=== PATIENT | female | born 1970 | race Caucasian/White ===

== ENCOUNTER 2018-06-06 22:11 | Emergency (ER) | payer SELFPAY ==
[~2018-06-06] VITALS: Ht 170.2 cm; Wt 136.1 kg
--- OUTSIDE RECORDS SUMMARY | 2018-06-06 22:13 | XMS REPORT | Clinical Summary ---
Author Author [facility] Organization [facility] Address Unknown Phone Unavailable Care Team Providers Care Enroute Controller Name Role Phone Sharpless PCP Allergies No Known Allergies Medications End Date Status Medication Sig Dispensed Refills Start Date Active diphenhydramine-acetamino Take 1 tablet 0 phen (TYLENOL PM) 25-500 by mouth mg Tab every night as needed. 08/28/2017 lisinopril Take 1 tablet 60 tablet 3 (PRINIVIL,ZESTRIL) 20 MG (20 mg total) 7 tablet by mouth 2 (two) times daily. 08/28/2017 metoprolol (LOPRESSOR) 25 Take 1 tablet 60 tablet 3 MG tablet (25 mg total) 7 by mouth 2 (two) times daily. Active Problems Problem Noted Date Hypertensive urgency 08/26/2016 Family History Medical History Relation Name Comments Arthritis Father Seizures Mother Relation Name Status Comments Father Alive Mother Social History Date Tobacco Use Types Packs/Day Years Used Never Smoker Alcohol Use Drinks/Week oz/Week Comments No Sex Assigned at Date Recorded Not on file Industry Job Start Date Occupation Not on file Not on file Not on file Travel End Travel History Travel Start No recent travel history available. Last Filed Vital Signs Not on file Plan of Treatment Not on file Results Not on fileafter 06/05/2017 Advance Directives For more information, please contact: [facility] [id number] [place] [address] Date Inactivated Comments Code Status Date Activated 08/28/2016 4:50 PM Full Code 08/26/2016 6:16 PM This code status was determined by: Patient
--- OUTSIDE RECORDS SUMMARY | 2018-06-06 22:13 | XMS REPORT | Clinical Summary ---
Author Author Mike [facility]ast[facility] Organization [facility] Address Unknown Phone Unavailable Care Team Providers Care Classified Ad Taker Name Role Phone Asked, No Pcp PCP Unavailable Allergies No Known Allergies Current Medications Prescription Sig. Disp. Refills Start End Date Status Date lisinopril Take 1 tablet (10 mg 30 tablet 0 03/22/20 Active (PRINIVIL,ZESTRIL) 10 mg total) by mouth daily for 18 tablet 30 days. carvedilol (COREG) 6.25 Take 1 tablet (6.25 mg 60 tablet 0 12/28/19 01/27/20 MG tablet total) by mouth 2 (two) 18 18 times a day for 30 days. traMADol (ULTRAM) 50 mg Take 1 tablet (50 mg 20 tablet 0 12/28/19 01/11/20 tablet total) by mouth every 6 18 18 (six) hours as needed for severe pain for up to 14 days. lisinopril Take 1 tablet (40 mg 30 tablet 0 12/29/19 01/28/20 Discontin (PRINIVIL,ZESTRIL) 40 mg total) by mouth daily. 18 18 ued tablet amLODIPine (NORVASC) 10 Take 1 tablet (10 mg 30 tablet 0 12/29/19 01/28/20 mg tablet total) by mouth daily for 18 18 30 days. clindamycin (CLEOCIN) 300 Take 1 capsule (300 mg 28 capsule 0 12/28/19 01/04/20 MG capsule total) by mouth 4 (four) 18 18 times a day for 7 days. metoprolol succinate XL Take 1 tablet (25 mg 30 tablet 0 03/22/03/22/20 Discontin (TOPROL-XL) 25 mg 24 hr total) by mouth daily for 18 18 ued tablet 30 days. metoprolol succinate XL Take 1 tablet (25 mg 30 tablet 0 03/22/20 04/21/20 (TOPROL-XL) 25 mg 24 hr total) by mouth daily for 18 18 tablet 30 days. Active Problems Problem Noted Date Secondary hypertension 12/27/2017 Resolved Problems Problem Noted Date Resolved Date Asymptomatic hypertensive urgency 12/27/2017 12/27/2017 Submental space infection 12/24/2017 12/27/2017 Encounters Date Type Specialty Care Team Description 03/22/2018 Emergency Emergency Medicine Dipak Spencer MD Leg edema, left (Primary Dx); Hypertension, unspecified type 12/24/2017 [facility] General Internal Medicine Baltazar Guerrier Submental space infection - Encounter MD Jasper (Primary Dx) 12/27/2017 Haroldo Yung MD Morris, David, after 06/05/2017 Social History Tobacco Use Types Packs/Day Years Used Date Never Smoker Smokeless Tobacco: Never Used Alcohol Use Drinks/Week oz/Week Comments No Sex Assigned at Date Recorded Not on file Last Filed Vital Signs Vital Sign Reading Time Taken Blood Pressure 195/84 03/22/2018 9:37 PM CDT Pulse 75 03/22/2018 9:37 PM CDT Temperature 37.1 C (98.7 F) 03/22/2018 4:57 PM CDT Respiratory Rate 18 03/22/2018 9:37 PM CDT Oxygen Saturation 98% 03/22/2018 9:22 PM CDT Inhaled Oxygen - - Concentration Weight 120 kg (265 lb) 12/26/2017 5:00 AM CDT Height 170.2 cm (5' 7") 03/22/2018 4:57 PM CDT Body Mass Index 41.5 12/26/2017 5:00 AM CDT Plan of Treatment Health Maintenance Due Date Last Done Comments CERVICAL CANCER SCREENING 1991 INFLUENZA VACCINE 03/01/2018 Procedures Procedure Name Priority Date/Time Associated Diagnosis Comments XR FOOT 2 VW LEFT STAT 03/22/2018 Results for this 9:13 PM CDT procedure are in the results section. US DUPLEX VENOUS LOWER STAT 03/22/2018 Results for this EXTREMITY LEFT 8:22 PM CDT procedure are in the results section. SMEAR REVIEW STAT 03/22/2018 Results for this 7:20 PM CDT procedure are in the results section. ZZESTIMATED GFR STAT 03/22/2018 Results for this 7:20 PM CDT procedure are in the results section. B NATRIURETIC PEPTIDE STAT 03/22/2018 Results for this 7:20 PM CDT procedure are in the results section. TROPONIN STAT 03/22/2018 Results for this 7:20 PM CDT procedure are in the results section. COMPREHENSIVE METABOLIC STAT 03/22/2018 Results for this PANEL 7:20 PM CDT procedure are in the results section. HC COMPLETE BLD COUNT STAT 03/22/2018 Results for this W/AUTO DIFF 7:20 PM CDT procedure are in the results section. ECG 12-LEAD STAT 03/22/2018 Results for this 5:03 PM CDT procedure are in the results section. ZZESTIMATED GFR Routine 12/27/2017 Results for this 6:26 AM CDT procedure are in the results section. HC COMPLETE BLD COUNT Routine 12/27/2017 Results for this W/AUTO DIFF 6:26 AM CDT procedure are in the results section. BASIC METABOLIC PANEL Routine 12/27/2017 Results for this 6:26 AM CDT procedure are in the results section. ZZESTIMATED GFR Routine 12/25/2017 Results for this 4:39 AM CDT procedure are in the results section. HC COMPLETE BLD COUNT Routine 12/25/2017 Results for this W/AUTO DIFF 4:39 AM CDT procedure are in the results section. HEMOGLOBIN A1C Routine 12/25/2017 Results for this 4:39 AM CDT procedure are in the results section. LIPID PANEL Routine 12/25/2017 Results for this 4:39 AM CDT procedure are in the results section. BASIC METABOLIC PANEL Routine 12/25/2017 Results for this 4:39 AM CDT procedure are in the results section. CT SOFT TISSUE NECK W STAT 12/24/2017 Results for this CONTRAST 1:41 PM CDT procedure are in the results section. ZZESTIMATED GFR Routine 12/24/2017 Results for this 12:20 PM CDT procedure are in the results section. HCG QUALITATIVE, SERUM STAT 12/24/2017 Results for this SCREEN 12:20 PM CDT procedure are in the results section. B NATRIURETIC PEPTIDE Routine 12/24/2017 Results for this 12:20 PM CDT procedure are in the results section. LIPASE LEVEL Routine 12/24/2017 Results for this 12:20 PM CDT procedure are in the results section. TROPONIN Routine 12/24/2017 Results for this 12:20 PM CDT procedure are in the results section. COMPREHENSIVE METABOLIC Routine 12/24/2017 Results for this PANEL 12:20 PM CDT procedure are in the results section. PROTHROMBIN TIME WITH INR Routine 12/24/2017 Results for this 12:20 PM CDT procedure are in the results section. HC COMPLETE BLD COUNT Routine 12/24/2017 Results for this W/AUTO DIFF 12:20 PM CDT procedure are in the results section. XR CHEST 1 VW PORTABLE STAT 12/24/2017 Results for this 11:51 AM CDT procedure are in the results section. ECG 12-LEAD STAT 12/24/2017 Results for this 11:51 AM CDT procedure are in the results section. ECG ED PRELIMINARY Routine 12/24/2017 Results for this INTERPRETATION 11:32 AM CDT procedure are in the results section. after 06/05/2017 Results * XR Foot 2 Vw Left (03/22/2018 9:13 PM) Narrative Performed At EXAMINATION:XR FOOT 2 VW LEFT [facility] CLINICAL HISTORY:Foot painchronicetiol unknowninitial exam COMPARISON:None. IMPRESSION: No evidence of acute left foot fracture or dislocation. No radiographic evidence of osteomyelitis. Foot soft tissue swelling. [facility]-[id number] Procedure Note Interface, Radiology Results Incoming - 03/22/2018 9:18 PM CDT EXAMINATION: XR FOOT 2 VW LEFT CLINICAL HISTORY: Foot pain chronic etiol unknown initial exam COMPARISON: None. IMPRESSION: No evidence of acute left foot fracture or dislocation. No radiographic evidence of osteomyelitis. Foot soft tissue swelling. [id number] Performing Organization Address City/State/Zipcode Phone Number [facility] [address] [place] [address] * PV Duplex Venous Lower Extremity (03/22/2018 8:22 PM) Narrative Performed At EXAMINATION:US DUPLEX VENOUS LOWER EXTREMITY LEFT [facility] CLINICAL HISTORY:dvt COMPARISON:None. TECHNIQUE:Grayscale, color Doppler, and spectral waveform analysis of the left lower extremity deep venous system was performed. The common femoral, superficial femoral, proximal deep femoral, greater saphenous, and popliteal veins were evaluated. The calf veins were also evaluated. A single image of the contralateral common femoral vein was obtained. FINDINGS: The left common femoral, superficial femoral, and popliteal veins are compressible. They demonstrate normal venous waveforms and response to augmentation. There is flow in the visualized calf veins. There is no evidence of a popliteal or Mcdermott's cyst. IMPRESSION: Normal left lower extremity venous Doppler examination. There is no evidence of deep venous thrombosis. [id number] Procedure Note Hm Interface, Radiology Results Incoming - 03/22/2018 8:27 PM CDT EXAMINATION: US DUPLEX VENOUS LOWER EXTREMITY LEFT CLINICAL HISTORY: dvt COMPARISON: None. TECHNIQUE: Grayscale, color Doppler, and spectral waveform analysis of the left lower extremity deep venous system was performed. The common femoral, superficial femoral, proximal deep femoral, greater saphenous, and popliteal veins were evaluated. The calf veins were also evaluated. A single image of the contralateral common femoral vein was obtained. FINDINGS: The left common femoral, superficial femoral, and popliteal veins are compressible. They demonstrate normal venous waveforms and response to augmentation. There is flow in the visualized calf veins. There is no evidence of a popliteal or Mcdermott's cyst. IMPRESSION: Normal left lower extremity venous Doppler examination. There is no evidence of deep venous thrombosis. [facility]-[id number] Performing Organization Address City/State/Zipcode Phone Number [facility] [address] [place] [address] * Smear review (03/22/2018 7:20 PM) Platelet slide review Bartolo adequate [facility] DEPARTMENT OF PATHOLOGY AND GENOMIC MEDICINE Enlarged platelets 1+ [facility] DEPARTMENT OF PATHOLOGY AND GENOMIC MEDICINE Toxic granulation Slight [facility] DEPARTMENT OF PATHOLOGY AND GENOMIC MEDICINE Performing Organization Address City/[facility]/Zipcode Phone Number [facility] DEPARTMENT OF [address] [place] [address] PATHOLOGY AND GENOMIC MEDICINE * Estimated GFR (03/22/2018 7:20 PM) Only the most recent of 4 results within the time period is included. GFR Non Af Amer 67 mL/min/1.73 m2 [facility] DEPARTMENT OF PATHOLOGY AND GENOMIC MEDICINE GFR Af Amer 81 mL/min/1.73 m2 [facility] DEPARTMENT OF Comment: PATHOLOGY AND Chronic kidney disease: <60 GENOMIC MEDICINE mL/min/1.73m2 Kidney failure: <15 mL/min/1.73m2 The estimated GFR is calculated from the IDMS-traceable Modification of Diet in Renal Disease Equation. The accuracy of the calculation is poor when the creatinine is normal. Calculated values >90 mL/min/1.73m2 are not reported. This equation has not been validated in children (<18 years), women, the elderly (>70 years), or ethnic groups other than Caucasians and Americans. Specimen Plasma specimen Performing Organization Address City/State/Zipcode Phone Number [place] [phone] PATHOLOGY AND [facility] * Troponin (03/22/2018 7:20 PM) Only the most recent of 2 results within the time period is included. Troponin <0.30 0.00 - 0.30 ng/mL [facility] DEPARTMENT OF Comment: PATHOLOGY AND 0.11 - 1.49 GENOMIC MEDICINE ng/mlMay indicate increased risk of acute coronary syndrome. >=1.5 ng/ml Consistent with acute myocardial infarction. The diagnostic value of a single normal or non-diagnostic result is questionable.Serial samples at 2-6 hour intervals are required to rule out acute myocardial injury. Specimen Plasma specimen Performing Organization Address City/[facility] Phone Number [address] [address] PATHOLOGY AND [facility] * CBC with platelet and differential (03/22/2018 7:20 PM) Only the most recent of 4 results within the time period is included. WBC 10.4 4.2 - 11.0 k/uL [facility] DEPARTMENT OF PATHOLOGY AND GENOMIC MEDICINE RBC 4.16 4.04 - 5.86 m/uL [facility] DEPARTMENT OF PATHOLOGY AND GENOMIC MEDICINE HGB 12.8 11.5 - 15.3 g/dL [facility] DEPARTMENT OF PATHOLOGY AND GENOMIC MEDICINE HCT 40.2 34.0 - 45.0 % [facility] DEPARTMENT OF PATHOLOGY AND GENOMIC MEDICINE MCV 96.6 80.0 - 98.0 fL [facility] DEPARTMENT OF PATHOLOGY AND GENOMIC MEDICINE MCH 30.8 27.0 - 34.0 pg [facility] DEPARTMENT OF PATHOLOGY AND GENOMIC MEDICINE MCHC 31.8 31.5 - 36.5 g/dL [facility] DEPARTMENT OF PATHOLOGY AND GENOMIC MEDICINE RDW - SD 45.4 37.0 - 51.0 fL [facility] DEPARTMENT OF PATHOLOGY AND GENOMIC MEDICINE MPV 9.7 7.4 - 10.4 fL [facility] DEPARTMENT OF PATHOLOGY AND GENOMIC MEDICINE Platelet count 345 150 - 400 k/uL [facility] DEPARTMENT OF PATHOLOGY AND GENOMIC MEDICINE Nucleated RBC 0.00 /100 WBC [facility] DEPARTMENT OF PATHOLOGY AND GENOMIC MEDICINE Neutrophils 62.6 36.0 - 66.0 % [facility] DEPARTMENT OF PATHOLOGY AND GENOMIC MEDICINE Lymphocytes 27.9 24.0 - 44.0 % [facility] DEPARTMENT OF PATHOLOGY AND GENOMIC MEDICINE Monocytes 6.9 (H) 0.0 - 6.0 % [facility] DEPARTMENT OF PATHOLOGY AND GENOMIC MEDICINE Eosinophils 1.5 0.0 - 6.0 % [facility] DEPARTMENT OF PATHOLOGY AND GENOMIC MEDICINE Basophils 0.4 0.0 - 1.2 % [facility] PATHOLOGY AND GENOMIC MEDICINE Immature granulocytes 0.7 0.0 - 1.0 % [facility] OF PATHOLOGY AND GENOMIC MEDICINE Specimen Blood Performing Organization Address City/[facility] [address] PATHOLOGY [facility] * B natriuretic peptide (03/22/2018 7:20 PM) Only the most recent of 2 results within the time period is included. BNP 54 0 - 100 pg/mL [facility] DEPARTMENT PATHOLOGY [facility] MEDICINE Specimen Blood Performing Organization Address [facility] [address] PATHOLOGY [facility] * Comprehensive metabolic panel (03/22/2018 7:20 PM) Only the most recent of 2 results within the time period is included. Sodium 142 135 - 150 mEq/L [facility] DEPARTMENT OF PATHOLOGY AND GENOMIC MEDICINE Potassium 4.2 3.5 - 5.0 mEq/L [facility] DEPARTMENT OF PATHOLOGY AND GENOMIC MEDICINE Chloride 102 98 - 112 mEq/L [facility] DEPARTMENT OF PATHOLOGY AND GENOMIC MEDICINE CO2 26 24 - 31 mmol/L [facility] DEPARTMENT PATHOLOGY AND GENOMIC MEDICINE Anion gap 14@ANIO 7 - 15 mEq/L [facility] DEPARTMENT OF PATHOLOGY AND GENOMIC MEDICINE BUN 12 7 - 18 mg/dL [facility] DEPARTMENT OF PATHOLOGY AND GENOMIC MEDICINE Creatinine 0.90 0.50 - 0.90 mg/dL [facility] DEPARTMENT OF PATHOLOGY AND GENOMIC MEDICINE Glucose 93 65 - 100 mg/dL [facility] DEPARTMENT OF PATHOLOGY AND GENOMIC MEDICINE Calcium 9.1 8.3 - 10.2 mg/dL [facility] DEPARTMENT OF PATHOLOGY AND GENOMIC MEDICINE Protein 7.8 6.3 - 8.3 g/dL [facility] DEPARTMENT OF PATHOLOGY AND GENOMIC MEDICINE Albumin 3.8 3.5 - 5.0 g/dL [facility] DEPARTMENT OF PATHOLOGY AND GENOMIC MEDICINE A/G ratio 1.0 0.7 - 3.8 [facility] DEPARTMENT OF PATHOLOGY AND GENOMIC MEDICINE Alkaline phosphatase 75 0 - 104 U/L [facility] DEPARTMENT OF PATHOLOGY AND GENOMIC MEDICINE AST 41 (H) 10 - 35 U/L [facility] DEPARTMENT OF PATHOLOGY AND GENOMIC MEDICINE ALT 30 5 - 50 U/L [facility] DEPARTMENT OF PATHOLOGY AND GENOMIC MEDICINE Total bilirubin 0.4 0.2 - 1.2 mg/dL [facility] DEPARTMENT OF PATHOLOGY AND GENOMIC MEDICINE Specimen Plasma specimen Performing Organization Address City/State/Zipcode Phone Number [facility] DEPARTMENT OF [address] [place] [address] PATHOLOGY AND GENOMIC MEDICINE * ECG 12 lead (03/22/2018 5:03 PM) Only the most recent of 2 results within the time period is included. Ventricular rate 81 [facility] Atrial rate 81 [facility] MI interval 198 [facility] QRSD interval 188 [facility] QT interval 470 [facility] QTC interval 545 [facility] P axis 1 37 [facility] QRS axis 1 -40 [facility] T wave axis 116 [facility] EKG impression Normal sinus rhythm-Possible [facility] Left atrial enlargement-Left axis deviation-Left bundle branch block-Abnormal ECG-In automated comparison with ECG of 24-DEC-2017 11:51,-No significant change was found- Procedure Note Dipak Spencer MD - 03/22/2018 6:14 PM CDT Formatting of this note may be different from the original. Emergency Department Provider Note Location: [facility] ED Patient ID: Juana Mathew is a 47 y.o. female. Chief Complaint Chief Complaint Patient presents with Hypertension non compliant with meds for a month Swollen left leg History of Present Illness 47 year old female with PMHx of HTN and surgical hx of cholecystectomy arrives to ED with c/o left leg swelling. Pt has been noncompliant with her Lisinopril 20 mg and Metoprolol 10 mg x 1 month. She describes the pain as pressure. She also c/o left ankle and foot swelling. Pt denies any back pain, fever trauma and hx of gout. No other medical complaints. 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 Injury: no Leg location: L leg Pain details: Quality: Pressure Radiates to: Does not radiate Severity: Moderate Onset quality: Gradual Timing: Constant Progression: Unchanged Chronicity: New Dislocation: no Foreign body present: No foreign bodies Tetanus status: Unknown Prior injury to area: Unable to specify Relieved by: None tried Worsened by: Bearing weight Ineffective treatments: None tried Associated symptoms: swelling Associated symptoms: no fever Swelling: Location: Leg (left ankle, foot, right leg) Onset quality: Gradual Duration: days. Timing: Constant Progression: Unchanged Chronicity: New History Allergies No Known Allergies Past Medical History Past Medical History: Diagnosis Date Hypertension Past Surgical History Past Surgical History: Procedure Laterality Date CHOLECYSTECTOMY CHOLECYSTECTOMY TUBAL LIGATION Past Family History No family history on file. Past Social History Social History Social History Main Topics Smoking status: Never Smoker Smokeless tobacco: Never Used Alcohol use No Drug use: No Sexual activity: Defer Past Social History Narrative Social History Social History Narrative No narrative on file Medications Discharge Medication List as of 03/22/2018 9:38 PM Discharge Medication List as of 03/22/2018 9:38 PM START taking these medications Details lisinopril (PRINIVIL,ZESTRIL) 10 mg tablet Take 1 tablet (10 mg total) by mouth daily for 30 days., Starting Tue03/22/2018, Until Tue04/21/2018, Print Review of Systems Review of Systems Constitutional: Negative. Negative for activity change and fever. HENT: Negative. Eyes: Negative. Respiratory: Negative for apnea, choking and stridor. Gastrointestinal: Negative for abdominal distention, abdominal pain, blood in stool and vomiting. Genitourinary: Negative. Negative for difficulty urinating, dysuria, flank pain and frequency. Musculoskeletal: Negative for gait problem and neck stiffness. + left leg pain + right leg swelling + left ankle swelling + left foot swelling Skin: Negative. Neurological: Negative for tremors, syncope, facial asymmetry, speech difficulty and weakness. Psychiatric/Behavioral: Negative for agitation, behavioral problems, confusion and hallucinations. Physical Exam ED Triage Vitals [03/22/18 1657] Temp Heart Rate Respiratory Rate BP SpO2 98.7 F 79 22 (!) 257/120 95 % Temp Source Heart Rate Source Patient Position BP Location FiO2 % Oral Right Sitting -- -- Physical Exam Constitutional: She is oriented to person, place, and time. She appears well- developed and well-nourished. HENT: Head: Normocephalic and atraumatic. Eyes: Conjunctivae and EOM are normal. Pupils are equal, round, and reactive to light. Neck: Normal range of motion. Neck supple. Cardiovascular: Normal rate, regular rhythm and normal heart sounds. Exam reveals no gallop and no friction rub. No murmur heard. Pulmonary/Chest: Effort normal and breath sounds normal. No stridor. No respiratory distress. She has no wheezes. She has no rales. Abdominal: Soft. She exhibits no distension and no mass. There is no tenderness. There is no rebound and no guarding. No hernia. Musculoskeletal: Normal range of motion. She exhibits no deformity. 2+ pitting edema to right LE and slightly increased edema on the left LE. Lymphadenopathy: She has no cervical adenopathy. Neurological: She is alert and oriented to person, place, and time. No cranial nerve deficit. She exhibits normal muscle tone. Psychiatric: She has a normal mood and affect. Her behavior is normal. Judgment and thought content normal. Nursing note and vitals reviewed. ED Course Clinical Impressions as of Mar 28 1850 Leg edema, left Hypertension, unspecified type [facility] Number of Diagnoses or Management Options Hypertension, unspecified type: established and worsening Leg edema, left: new and requires workup Amount and/or Complexity of Data Reviewed Clinical lab tests: ordered and reviewed Tests in the radiology section of CPT: ordered and reviewed Tests in the medicine section of CPT: ordered and reviewed Review and summarize past medical records: yes Risk of Complications, Morbidity, and/or Mortality Presenting problems: moderate Diagnostic procedures: moderate Management options: moderate Patient Progress Patient progress: stable Labs Results for orders placed or performed during the hospital encounter of 03/22/18 CBC with platelet and differential Result Value Ref Range WBC 10.4 4.2 - 11.0 k/uL RBC 4.16 4.04 - 5.86 m/uL HGB 12.8 11.5 - 15.3 g/dL HCT 40.2 34.0 - 45.0 % MCV 96.6 80.0 - 98.0 fL MCH 30.8 27.0 - 34.0 pg MCHC 31.8 31.5 - 36.5 g/dL RDW - SD 45.4 37.0 - 51.0 fL MPV 9.7 7.4 - 10.4 fL Platelet count 345 150 - 400 k/uL Nucleated RBC 0.00 /100 WBC Neutrophils 62.6 36.0 - 66.0 % Lymphocytes 27.9 24.0 - 44.0 % Monocytes 6.9 (H) 0.0 - 6.0 % Eosinophils 1.5 0.0 - 6.0 % Basophils 0.4 0.0 - 1.2 % Immature granulocytes 0.7 0.0 - 1.0 % Comprehensive metabolic panel Result Value Ref Range Sodium 142 135 - 150 mEq/L Potassium 4.2 3.5 - 5.0 mEq/L Chloride 102 98 - 112 mEq/L CO2 26 24 - 31 mmol/L Anion gap 14@ANIO 7 - 15 mEq/L BUN 12 7 - 18 mg/dL Creatinine 0.90 0.50 - 0.90 mg/dL Glucose 93 65 - 100 mg/dL Calcium 9.1 8.3 - 10.2 mg/dL Protein 7.8 6.3 - 8.3 g/dL Albumin 3.8 3.5 - 5.0 g/dL A/G ratio 1.0 0.7 - 3.8 Alkaline phosphatase 75 0 - 104 U/L AST 41 (H) 10 - 35 U/L ALT 30 5 - 50 U/L Total bilirubin 0.4 0.2 - 1.2 mg/dL Troponin Result Value Ref Range Troponin <0.30 0.00 - 0.30 ng/mL B natriuretic peptide Result Value Ref Range BNP 54 0 - 100 pg/mL Estimated GFR Result Value Ref Range GFR Non Af Amer 67 mL/min/1.73 m2 GFR Af Amer 81 mL/min/1.73 m2 Smear review Result Value Ref Range Platelet slide review Bartolo adequate Enlarged platelets 1+ Toxic granulation Slight ECG 12 lead Result Value Ref Range Ventricular rate 81 Atrial rate 81 MI interval 198 QRSD interval 188 QT interval 470 QTC interval 545 P axis 1 37 QRS axis 1 -40 T wave axis 116 EKG impression Normal sinus rhythm-Possible Left atrial enlargement-Left axis deviation-Left bundle branch block-Abnormal ECG-In automated comparison with ECG of 24-DEC-2017 11:51,-No significant change was found- Radiology No results found. Procedures ECG 12 lead Date/Time: 03/22/2018 6:18 PM Performed by: DIPAK SPENCER Authorized by: DIPAK SPENCER ECG reviewed by ED Physician in the absence of a rabbit dresser: yes Rate: ECG rate: 81 ECG rate assessment: normal Rhythm: Rhythm: sinus rhythm QRS: QRS axis: Normal Conduction: Conduction: abnormal Abnormal conduction: complete LBBB ST segments: ST segments: Non-specific Differential Diagnoses This patient has a differential diagnosis of Venous insufficiency, edema, hypertension, acute renal failure, CHF, DVT. Final Diagnoses Final diagnoses: Leg edema, left Hypertension, unspecified type Disposition This patient has a disposition of Discharge. ED Attestations Scribe Attestation: This document is recorded by Fuad Sal acting as a scribe under the direction and presence of DIPAK SPENCER. Fuad Sal 03/22/18 7500 Dipak Spencer MD 03/28/18 [id number] Performing Organization Address City/[facility] Phone Number [facility] [address] [place] [address] * Basic metabolic panel (12/27/2017 6:26 AM) Only the most recent of 2 results within the time period is included. Sodium 141 135 - 150 mEq/L [facility] DEPARTMENT OF PATHOLOGY AND GENOMIC MEDICINE Potassium 3.9 3.5 - 5.0 mEq/L [facility] DEPARTMENT OF PATHOLOGY AND GENOMIC MEDICINE Chloride 104 100 - 109 mEq/L [facility] DEPARTMENT OF PATHOLOGY AND GENOMIC MEDICINE CO2 29 24 - 32 mmol/L [facility] DEPARTMENT OF PATHOLOGY AND GENOMIC MEDICINE Anion gap 8@ANIO 7 - 15 mEq/L [facility] DEPARTMENT OF PATHOLOGY AND GENOMIC MEDICINE BUN 15 7 - 18 mg/dL [facility] DEPARTMENT OF PATHOLOGY AND GENOMIC MEDICINE Creatinine 0.7 (L) 0.8 - 1.5 mg/dL [facility] DEPARTMENT OF PATHOLOGY AND GENOMIC MEDICINE Glucose 126 (H) 65 - 100 mg/dL [facility] DEPARTMENT OF PATHOLOGY AND GENOMIC MEDICINE Calcium 8.7 8.6 - 10.7 mg/dL [facility] DEPARTMENT OF PATHOLOGY AND GENOMIC MEDICINE Specimen Plasma specimen Performing Organization Address City/[facility]/Zipcode Phone Number [place] [address] [place] [address] PATHOLOGY AND GENOMIC MEDICINE * Hemoglobin A1c (12/25/2017 4:39 AM) Hemoglobin A1C 5.6 4.0 - 6.0 % [facility] DEPARTMENT OF Comment: PATHOLOGY AND GENOMIC MEDICINE Less than 6% - Goal of therapy for Type II Diabetes Less than 7%-Goal of therapy for Type I Diabetes Less than 8%-Accepta ble control for Type I or Type II Diabetes Greater than 8%-Unacceptabl e control; action indicated. ([id number]) Specimen Blood Performing Organization Address City/[facility] Hospitalcode Phone Number [facility] DEPARTMENT OF [address] [place] [address] PATHOLOGY AND [facility] MEDICINE * Lipid panel (12/25/2017 4:39 AM) Cholesterol 109 (L) 120 - 200 mg/dL [facility] DEPARTMENT OF PATHOLOGY AND [facility] MEDICINE Triglycerides 216 (H) 50 - 150 mg/dL [facility] DEPARTMENT OF PATHOLOGY AND [facility] MEDICINE HDL cholesterol 31 (L) 40 - 60 mg/dL [facility] DEPARTMENT OF PATHOLOGY AND [facility] MEDICINE LDL cholesterol 60Comment: Result obtained by mg/dL [facility] DEPARTMENT OF direct LDL measurement PATHOLOGY AND [facility] Specimen Plasma specimen Performing Organization Address City/[facility] Hospitalcode Phone Number [facility] [address] [place] [address] PATHOLOGY AND [facility] MEDICINE * CT Soft Tissue Neck W Contrast (12/24/2017 1:41 PM) Narrative Performed At EXAMINATION: CT SOFT TISSUE NECK W CONTRAST HM [facility] CLINICAL HISTORY: swelling under jawsublingual edemapoor dentition. 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 COMPARISON: TECHNIQUE: Postcontrast enhanced imaging through the neck was performed from the upper chest through the skull base with coronal and sagittal reconstructed images.CT imaging was performed with iterative reconstruction technique and/or automated exposure control to reduce radiation dose. FINDINGS: Multiple subcentimeter bilateral neck level 1 and 2 lymph nodes with minimal adjacent fat stranding (series 301B, image 49). No evidence of abscess or asymmetric soft tissue swelling. Poor dentition with multiple absent teeth and periapical lucency involving the right mandibular lateral incisor and canine with anterior cortical dehiscence. No adjacent fluid collection is identified. 1.5 x 3.0 x 2.2 cm fat-containing bone lesion, likely a hemangioma. Visualized lungs are unremarkable. Thyroid is unremarkable. Narrowing of the oropharyngeal airway, likely secondary to patient body habitus. Major vessels of the neck appear grossly patent. Hypoplastic or atrophied left submandibular gland. Major salivary glands are otherwise unremarkable. Mild degenerative changes of the cervical spine most masses of C5-C6 and C6-C7 where posterior osteophytes contribute to mild to moderate spinal canal stenosis. Limited evaluation of the visualized intracranial contents demonstrates no acute abnormality. Orbital contents are unremarkable. Mastoid air cells are clear. IMPRESSION: 1. Poor dentition with multiple absent teeth and periapical lucencies without evidence of adjacent collection. 2. Multiple subcentimeter neck level 1 and 2 lymph nodes with minimal adjacent fat stranding in the submental region, likely reactive. Clinical follow-up with serial physical exams is recommended. [id number] Procedure Note Hm Interface, Radiology Results Incoming - 12/24/2017 2:02 PM CDT EXAMINATION: CT SOFT TISSUE NECK W CONTRAST CLINICAL HISTORY: swelling under jaw sublingual edema poor dentition. 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 COMPARISON: TECHNIQUE: Postcontrast enhanced imaging through the neck was performed from the upper chest through the skull base with coronal and sagittal reconstructed images. CT imaging was performed with iterative reconstruction technique and/or automated exposure control to reduce radiation dose. FINDINGS: Multiple subcentimeter bilateral neck level 1 and 2 lymph nodes with minimal adjacent fat stranding (series 301B, image 49). No evidence of abscess or asymmetric soft tissue swelling. Poor dentition with multiple absent teeth and periapical lucency involving the right mandibular lateral incisor and canine with anterior cortical dehiscence. No adjacent fluid collection is identified. 1.5 x 3.0 x 2.2 cm fat-containing bone lesion, likely a hemangioma. Visualized lungs are unremarkable. Thyroid is unremarkable. Narrowing of the oropharyngeal airway, likely secondary to patient body habitus. Major vessels of the neck appear grossly patent. Hypoplastic or atrophied left submandibular gland. Major salivary glands are otherwise unremarkable. Mild degenerative changes of the cervical spine most masses of C5-C6 and C6-C7 where posterior osteophytes contribute to mild to moderate spinal canal stenosis. Limited evaluation of the visualized intracranial contents demonstrates no acute abnormality. Orbital contents are unremarkable. Mastoid air cells are clear. IMPRESSION: 1. Poor dentition with multiple absent teeth and periapical lucencies without evidence of adjacent collection. 2. Multiple subcentimeter neck level 1 and 2 lymph nodes with minimal adjacent fat stranding in the submental region, likely reactive. Clinical follow-up with serial physical exams is recommended. [id number] Performing Organization Address City/State/Zipcode Phone Number [facility] [address] [place] [address] * Prothrombin time with INR (12/24/2017 12:20 PM) Prothrombin time 13.1 12.0 - 15.0 sec [facility] DEPARTMENT OF PATHOLOGY AND GENOMIC MEDICINE INR 0.98 0.92 - 1.12 [facility] DEPARTMENT OF Comment: PATHOLOGY AND For patients on anticoagulant GENOMIC MEDICINE therapy, reference ranges below: Indication: INR Value Treatment of Venous Thrombosis, 2.0-3.0 pulmonary emboli, or prophylaxis of a venous thrombosis, or systemic emboli. High dose, high risk patients 3.0-4.5 with mechanical valves. NOTE:INR values over 3.0 are sometimes associated with gastrointestinal hemorrhage, especially values over 4.0. Specimen Blood Performing Organization Address [facility] Hospitalcode Phone Number [facility] DEPARTMENT OF [address] [place] [address] PATHOLOGY AND GENOMIC MEDICINE * hCG qualitative, serum screen (12/24/2017 12:20 PM) hCG qualitative, serum Negative [facility] DEPARTMENT OF Comment: PATHOLOGY AND The manufacturers stated GENOMIC MEDICINE sensitivity of HcG test for serum is >/=10 mIU/ml and urine is >/=20mIU/ml. Specimen Blood Performing Organization Address City/[facility] Hospitalcode Phone Number [facility] DEPARTMENT OF [address] [place] [id number] PATHOLOGY AND [facility] MEDICINE * Lipase level (12/24/2017 12:20 PM) Lipase 139 65 - 230 U/L [facility] DEPARTMENT OF PATHOLOGY AND [facility] MEDICINE Specimen Plasma specimen Performing Organization Address City/[facility]/Zipcode Phone Number [facility] DEPARTMENT OF [address] [place] [address] PATHOLOGY AND [facility] MEDICINE * XR Chest 1 Vw Portable (12/24/2017 11:51 AM) Narrative Performed At [facility]: [facility] XR CHEST 1 VW PORTABLE INDICATION: htn COMPARISON: None. IMPRESSION: Minimal hypoinflation lungs. Otherwise, lungs clear without consolidation, pleural effusion, pneumothorax. Minimal cardiomegaly, exaggerated by anteroposterior positioning. [id number] Procedure Note Interface, Radiology Results Incoming - 12/24/2017 11:56 AM CDT EXAM: XR CHEST 1 VW PORTABLE INDICATION: htn COMPARISON: None. IMPRESSION: Minimal hypoinflation lungs. Otherwise, lungs clear without consolidation, pleural effusion, pneumothorax. Minimal cardiomegaly, exaggerated by anteroposterior positioning. [id number] Performing Organization Address City/State/Zipcode Phone Number [facility] [address] [place] [address] * ECG ED Preliminary Interpretation - NOT AN ORDER (12/24/2017 11:32 AM) Narrative Performed At Baltazar Guerrier MD 12/24/20175:26 PM ECG ED Preliminary Interpretation - Not an Order Performed by: BALTAZAR GUERRIER Authorized by: BALTAZAR GUERRIER ECG reviewed by ED Physician in the absence of a rabbit dresser: yes Rate: ECG rate:86 ECG rate assessment: normal Rhythm: Rhythm: sinus rhythm QRS: QRS axis:Left Comments: Left bundle branch block. after 06/05/2017
[2018-06-06] MEDS ORDERED: NIFEDIPINE 10 MG CAP PO STA (22:32)
--- NOTE | 2018-06-06 23:10 | Diagnostic Imaging Report ---
EXAMINATION: CHEST 2 VIEWS INDICATION: Shortness of breath upon exertion, hypertension COMPARISON: None FINDINGS: PA and lateral views TUBES and LINES: None. LUNGS: Lungs are well inflated. Hilar fullness with central interstitial prominence. There is no evidence of pneumonia or pulmonary edema. PLEURA: No pleural effusion or pneumothorax. HEART AND MEDIASTINUM: Enlargement of the cardiac silhouette. BONES AND SOFT TISSUES: No acute osseous lesion. Soft tissues are unremarkable. UPPER ABDOMEN: No free air under the diaphragm. IMPRESSION: Enlarged cardiac silhouette with central pulmonary venous congestion. Signed by: DR. Zheng Sarah MD on 06/06/2018 11:06 PM
[2018-06-06 23:33] LABS: BASOPHILS # (AUTO) 0.1 (0.0-0.1); BASOPHILS % 0.4 % (0.0-1.0); EOSINOPHILS # (AUTO) 0.2 (0.0-0.4); HEMATOCRIT 39.4 % (34.2-44.1); HEMOGLOBIN 12.4 g/dL (12.0-16.0); LYMPHOCYTES # (AUTO) 3.6 (1.0-3.2); LYMPHOCYTES % 22.1 % (18.0-39.1); MEAN CORPUSCULAR HEMOGLOBIN 30.8 pg (28-32); MEAN CORPUSCULAR HGB CONC 31.5 g/dL (31-35); MONOCYTES % 6.3 % (4.4-11.3); NEUTROPHILS # (AUTO) 11.3 (2.1-6.9); NEUTROPHILS % 68.7 % (38.7-80.0); PLATELET COUNT 303 x10e3/uL (140-360); RED BLOOD COUNT 4.02 x10e6/uL (3.6-5.1); RED CELL DISTRIBUTION WIDTH 13.2 % (11.7-14.4)
[2018-06-06 23:57] LABS: ALANINE AMINOTRANSFERASE 20 IU/L (0-55); ALBUMIN 3.6 g/dL (3.5-5.0); ALBUMIN/GLOBULIN RATIO 0.9 (0.8-2.0); ALKALINE PHOSPHATASE 66 IU/L (40-150); ANION GAP 14.9 mmol/L (8-16); BLOOD UREA NITROGEN 22 mg/dL (7-26); BUN/CREATININE RATIO 25 (6-25); CALCIUM 9.2 mg/dL (8.4-10.2); CARBON DIOXIDE 23 mmol/L (22-29); CHLORIDE 103 mmol/L (98-107); CREATINE KINASE 112 IU/L (29-168); CREATININE, SERUM 0.88 mg/dL (0.57-1.11); EST GLOMERULAR FILTRATION RATE > 60 ML/MIN (60-); GLUCOSE 108 mg/dL (74-118); POTASSIUM 3.9 mmol/L (3.5-5.1); SODIUM 137 mmol/L (136-145)
[2018-06-07] MEDS ORDERED: CLONIDINE HCL 0.2 MG TAB PO ONE (00:30)
[2018-06-07] MEDS ORDERED: CLONIDINE HCL 0.2 MG TAB ONE (00:44)
[2018-06-07 01:15] VITALS: BP 169/89
== END 2018-06-07 01:48 | disposition home or self-care (01) ==
LOC: ER 22:11
DX: I10 Essential (primary) hypertension (principal)
CPT/HCPCS: 36415; 71046; 80053; 82550; 82553; 84484; 85025; 93005; 99284